=== PATIENT | female | born 1965 | race Caucasian/White ===

== ENCOUNTER 2017-08-06 08:14 | Day surgery (SDC) | payer BC, MEDICARE ==
--- NOTE | 2017-08-06 06:35 | History and Physical Report ---
DATE: 08/06/2017. CHIEF COMPLAINT AND HISTORY OF CHIEF COMPLAINT: This is a patient with an implantable spinal infusion with hydromorphone. She is here for battery change. Her history is complicated and includes cardiac and pulmonary system involvement. After the appropriate clearances, she presents for this outpatient -based battery change. PAST MEDICAL HISTORY: Hypothyroidism, asthmatic bronchitis, sleep apnea, cardiogenic as well as pulmonary symptom patterns. PAST SURGICAL HISTORY: Peripheral stimulator, breast surgery, hysterectomy, ankle surgery, shoulder surgery, thyroid surgery. MEDICATIONS ON ADMISSION: To be provided. ALLERGIES: Iodine and Zithromax. REVIEW OF SYSTEMS: The patient is seen in a wheelchair but appears to be in no acute distress. She is oxygen dependent. The remainder of the systems review shows headaches, chronic breathing difficulties, irregular heartbeat, mitral valve prolapse, bladder dysfunction, irritable bowel syndrome, fibromyalgia, depression, and difficulty sleeping. SOCIAL HISTORY: Noncontributory. FAMILY HISTORY: Thyroid disease, diabetes, coronary disease, hypertension, cancer. PHYSICAL EXAMINATION: General: Height is 5 feet, 7 inches. Weight is 335 pounds. Vital Signs: Unavailable. HEENT: Within normal limits. Lungs: Clear. Heart: Regular rate and rhythm. Abdomen: Nontender. Musculoskeletal: Examination shows the pump in the right posterosuperior gluteal margin. The incision is intact. The midline incision for the catheter approximates L3 and is intact. Sensory garcia are intact. Neurologic: Is essentially intact. IMPRESSION: 1. INTRACTABLE LUMBAR RADICULITIS, ICD-10 CODE M54.16 AND M54.17. 2. IMPLANTED SPINAL OPIOID INFUSION SYSTEM WITH HYDROMORPHONE WITH BATTERY DEPLETION. PLAN: The patient is here on an outpatient basis for a battery change. No changes will be made to the infusion system. The procedure is outpatient. The potential risks, side effects, and complications have all been reviewed and discussed. HERLINDA PANG D.O. Date & Time JOB NUMBER: [id number] cc: Cornelius Baca
[~2017-08-06 08:14] MED LIST: ACETAMINOPHEN 1,000 MG/100 ML BTL IV ONE; CEFAZOLIN 2 Gram 2 GM/50 ML BAG IVPB ONE; FAMOTIDINE 20MG TABLET PO ONE; HYDROMORPHONE HCL IV ONE; HYDROMORPHONE HCL/PF 0.002 MG in 0.9 % SODIUM CHLORIDE 10ML VIA 0.998 ML IVP ONE; MECLIZINE 25 MG TABLET PO ONE; SODIUM CHLORIDE 0.9% IV ONE
[2017-08-06 09:22] LABS: BASO % 0.6 % (0-6); EOS % 3.3 % (0-6); GRAN % 56.8 % (47-80); LYMPH % 30.4 % (16-45); MEAN CELL VOLUME 93.3 fl (81-97); MEAN CORPUSCULAR HEMOGLOBIN 29.3 pg (27-33); MEAN CORPUSCULAR HGB CONC 31.4 g/dl (32-36); MEAN PLATELET VOLUME 10.2 fl (7.4-10.4); MONO % 8.9 % (0-9); PLATELET COUNT 191 K/uL (130-400); RED BLOOD COUNT 3.75 M/uL (3.80-5.40); RED CELL DISTRIBUTION WIDTH 12.5 % (11.5-14.5)
[2017-08-06 09:30] LABS: ANION GAP 7.1 (7-16); BLOOD UREA NITROGEN 10 mg/dL (7-17); CARBON DIOXIDE 32.9 mmol/L (22-30); CREATININE 0.7 mg/dL (0.52-1.04); EST GLOMERULAR FILTRATION RATE > 60 ml/min; GLUCOSE,RANDOM 116 mg/dL (70-110); INR 0.96; PARTIAL THROMBOPLASTIN TIME 24.5 SECONDS (24.5-39.1); PROTHROMBIN TIME (PATIENT) 10.4 SECONDS (9.5-12.1)
[2017-08-06] MEDS ORDERED: MIDAZOLAM HCL 2MG/2ML VIAL IV ONE (14:00)
[2017-08-06] MEDS ORDERED: FENTANYL PF 100MCG/2ML VIAL IV ONE (14:00)
[2017-08-06] MEDS ORDERED: LIDOCAINE 2% MDV (20MG/ML) 20ML VIAL IV ONE (14:00)
[2017-08-06] MEDS ORDERED: HYDROMORPHONE HCL 2 MG/ML VIAL IV ONE (14:00)
[2017-08-06] MEDS ORDERED: ONDANSETRON HCL IV 4 MG/2 ML VIAL IVP ONE (14:00)
[2017-08-06] MEDS ORDERED: PROPOFOL 10 MG/ML VIAL IV ONE (14:00)
[2017-08-06] MEDS ORDERED: 0.9 % SODIUM CHLORIDE 10 ML VIAL IVP ONE (16:08)
[2017-08-06] MEDS ORDERED: LIDOCAINE 1% W/EPI 1:200,000 MPF 30ML SQ ONE (16:08)
[2017-08-06] MEDS ORDERED: CEFAZOLIN 1G VIAL IM ONE (16:08)
[2017-08-06] MEDS ORDERED: BUPIVACAINE 0.5% W/EPI MPF 30 ML VIAL IVP ONE (16:08)
--- NOTE | 2017-08-06 19:45 | Operative Note - [facility] ---
DATE OF SURGERY: 08/06/17 PREOPERATIVE DIAGNOSES: 1. INTRACTABLE LUMBAR RADICULITIS. 2. INTRASPINAL OPIOID INFUSION SYSTEM HYDROMORPHONE NONFUNCTIONAL, FLIPPED BATTERY. BATTERY DEPLETION. OPERATION: 1. INCISION, SUBCUTANEOUS DISSECTION, AND REMOVAL AND REPLACEMENT OF [employer] PROGRAMMABLE PUMP, 40 ML, RIGHT POSTERIOR SUPERIOR GLUTEAL MARGIN. 2. CATHETER RESECTION. 3. NEW PUMP PRE-FILLED HYDROMORPHONE ONTO FIELD, 40 ML, INTERFACED RESECTED CATHETER. 4. REVISION RIGHT POSTERIOR SUPERIOR GLUTEAL MARGIN PUMP POUCH EXTENDING POUCH SUPERIOR TOWARDS BELT LINE ONE PUMP DIAMETER. 5. PLACEMENT OF PUMP INTO POUCH SECURING TO FASCIA WITH FIVE NONABSORBABLE ANCHORING SUTURES PLACED THROUGH DACRON SLEEVE SECURING PUMP TO POSTERIOR FASCIA. 6. PROGRAMMING OF PUMP TO DELIVER BY CONTINOUS INFUSION HYDROMORPHONE 7.0 MG PER DAY. 7. CLOSURE OF INCISIONS VICRYL FOR FASCIA, RUNNING SUBCUTICULAR VICRYL FOR SKIN , DERMABOND CLOSURE. SURGEON: HERLINDA PANG D.O. ANESTHESIA: LOCAL SEDATION. ANESTHESIA PROVIDER: RACHAEL LITTLEJOHN CRNA INDICATIONS: This patient presents with a history of intractable lumbar radiculitis and a spinal infusion device with Hydromorphone. At the last refill , it was noted the pump had flipped in the pouch and was now facing the opposite direction. She is here for revision and replacement of pump, since the pump was already at its end of battery life. We will replace the battery and pump refill and, because of body weight/anatomy, revise the pouch pushing the pump up more towards the belt line. A catheter revision is likely because of the flipped nature of the problem and torsion on the catheter. PROCEDURE: Intravenous line, vital sign monitoring, IV sedation. Prepped and draped in sterile technique. Patient positioned prone. Under imaging, the pump identified in the pouch. Skin infiltrated. Incision made and subcutaneous dissection was conducted to the pump, which had flipped. It was exteriorized and 12 to 20 twists on the indwelling catheter were identified. The catheter was resected. A new catheter component interfaced to the catheter indwelling, which was not involved in the twists and kinks. Attempts to aspirate and clear the catheter were unsuccessful. A new placed onto the field prefilled with Hydromorphone. The new pump, 40 mL, was placed into a Dacron sleeve and then interfaced with the revised and resected catheter. Antibiotic irrigation and Bovie for hemostasis. The pouch was then revised and enlarged extending superior towards the belt line approximately one to one-half pump diameter. Antibiotic irrigation, Bovie for hemostasis. The pump in the Dacron sleeve was then placed into the pouch and secured to the posterior fascia using five nonabsorbable suture anchors through the Dacron sleeve. Antibiotic irrigation, Bovie for hemostasis. Because the catheter could not be aspirated, no diagnostics were performed. The catheter tip was identified at T6. The incision was then closed with Vicryl for fascia and running subcuticular Vicryl for skin. Dermabond closure placed. The pump was programmed back to original parameters, Hydromorphone 7 mg per day. She was transported to the Recovery Room stable. DISCHARGE INSTRUCTIONS: 1. The site is to remain clean and dry. No showering or bathing in any way, although the Dermabond will allow showering too. Because of the catheter revision, the patient and have been advised there may be a brief period where there may be some disruption to the infusion because of the infusion is continuous and at a high flow rate. This will quickly be made up. Oral medications can be used during that brief period where there may be increasing pain. 2. Standard medications resumed including Levaquin, the antibiotic, 500 mg once a day for 14 days. 3. Office will contact the patient at home to evaluate the incisional site in three to five days. 4. Spinal opioid side effects including respiratory depression, nausea, vomiting , constipation, urinary retention, lightheadedness, or rash have been discussed and reviewed. She will be seen in the office in five to seven days. Office will contact her at home. All other instructions provided. Numbers to contact if problems given. CC: Dr. Shannan To JOB NUMBER: [id number] MTDD
== END 2017-08-06 15:15 | disposition home or self-care (01) ==
LOC: SUR 08:14
PROVIDERS: ATTEND Pain Medicine Interventional Pain Medicine
DX: T85.695A Other mechanical complication of other nervous system device, implant or graft, initial encounter (principal); M54.16 Radiculopathy, lumbar region; I10 Essential (primary) hypertension; K58.1 Irritable bowel syndrome with constipation; I48.91 Unspecified atrial fibrillation; Z79.01 Long term (current) use of anticoagulants; E06.3 Autoimmune thyroiditis; G47.419 Narcolepsy without cataplexy; Z95.0 Presence of cardiac pacemaker; J45.909 Unspecified asthma, uncomplicated; F41.8 Other specified anxiety disorders
CPT/HCPCS: 62362; 62350; 00630; 62368; 85025; 85730; 85610; 80048; 85002; J2405; J1170 ×2; J3010; J0690